=== PATIENT | male | born 1995 | race Two or more races ===

== ENCOUNTER 2017-05-03 17:51 | Emergency (ER) | payer MEDICAID ==
[2017-05-03 18:16] VITALS: TEMP 98.1
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
[2017-05-03] MEDS ORDERED: KETOROLAC 30 MG/1 ML SDV IVP ONE (19:49)
[2017-05-03 20:34] VITALS: BP 135/75; PULSE 70; RESP 16; O2SAT 97
== END 2017-05-03 20:33 | disposition home or self-care (01) ==
LOC: EDUNIT#
DX: S16.1XXA Strain of muscle, fascia and tendon at neck level, initial encounter (principal); S00.03XA Contusion of scalp, initial encounter; S80.02XA Contusion of left knee, initial encounter; S90.32XA Contusion of left foot, initial encounter; V49.40XA Driver injured in collision with unspecified motor vehicles in traffic accident, initial encounter; Y92.410 Unspecified street and highway as the place of occurrence of the external cause; Y99.8 Other external cause status; Y93.89 Activity, other specified
CPT/HCPCS: 96374; J1885